=== PATIENT | male | born 1975 | race Two or more races ===

== ENCOUNTER 2023-04-19 14:46 | Emergency (ER) | payer SELFPAY ==
[~2023-04-19] VITALS: Ht 185.4 cm; Wt 129.7 kg
[2023-04-19 15:43] VITALS: TEMP 80
[2023-04-19] MEDS ORDERED: MORPHINE SULFATE INJ 4 MG/ML DISP.SYRIN ONE (16:18)
[2023-04-19] MEDS ORDERED: MORPHINE SULFATE INJ 2 MG/ML DISP.SYRIN IV ONE (16:30)
[2023-04-19] MEDS ORDERED: diphenhydrAMINE HCL 50 MG/ML VIAL ONE (16:32)
[2023-04-19] MEDS ORDERED: diphenhydrAMINE HCL 50 MG/ML VIAL IV ONE (17:00)
[2023-04-19] MEDS ORDERED: KETOROLAC TROMETHAMINE INJ 30 MG/ML VIAL ONE (17:49)
[2023-04-19] MEDS ORDERED: IBUP-1953 PO (17:59)
[2023-04-19] MEDS ORDERED: CYCL10TA9 PO (17:59)
[2023-04-19] MEDS ORDERED: KETOROLAC TROMETHAMINE INJ 30 MG/ML VIAL IV ONE (18:00)
[2023-04-19 18:35] VITALS: BP 129/80; O2SAT 98
== END 2023-04-19 18:35 | disposition home or self-care (01) ==
LOC: ER 14:48
DX: R07.89 Other chest pain (principal); R51.9 Headache, unspecified; M54.2 Cervicalgia; Z88.0 Allergy status to penicillin; V89.2XXA Person injured in unspecified motor-vehicle accident, traffic, initial encounter; Y93.89 Activity, other specified; Y92.89 Other specified places as the place of occurrence of the external cause; Y99.8 Other external cause status
CPT/HCPCS: 99285; 72125; 96374; 71045; 96375; 70450; L0172; J1200; J2270; J1885